=== PATIENT | female | born 1955 | race American Indian/Alaskan Native ===

== ENCOUNTER 2017-11-11 10:27 | Emergency (ER) | payer MEDICARE ==
--- NOTE | 2017-11-11 12:05 | Emergency Department Report ---
- General Chief complaint: Weakness Stated complaint: WEAKNESS Time Seen by Provider: 11/11/17 11:38 Source: patient Mode of arrival: Ambulatory Limitations: No Limitations - History of Present Illness Initial comments: 62-year-old woman presents for evaluation of generalized weakness. Weakness has been present chronically, for at least 6 months, probably longer, but patient moved here 6 months ago from [place], where she had previously been diagnosed with brain tumor, of unknown type, approximately 5 years ago, which she never had follow-up on, primarily of fear of possible consequences. She also has chronic hepatitis C, has not had definitive treatment for this, although she was recommended for it and was ready to start at the time that she moved from [place]. She has not seen a doctor since she has moved to [place], takes no routine medication, and reports few other illnesses, although she does have a distant history of asthma as well as COPD, secondary to smoking , but reports that she only smokes 2 or 3 cigarettes per day at this time. She denies alcohol use, denies active recreational drug use. Past medical history negative for underlying hepatitis C, known brain tumor, COPD, and she is chronically disabled, but not specific Y, reporting that she simply cannot work. Weakness is described as generalized, persistent, with decreased appetite, resulting in eating much less, with subsequent weight loss of about 20-25 pounds over the past several months. She has not had any focal deficit, she's not had any lightheadedness, no loss of consciousness, no systemic symptoms, no fever chills or diaphoresis. She is also concerned about a possible blood clot in her leg, because she has a knot in her left anterior thigh, but no history of trauma, although she reports she puts her elbow frequently on her thigh routinely and chronically. She has no complaints of pain at this time. -: Gradual, month(s) Location: generalized Severity: moderate Associated Symptoms: loss of appetite. denies: chest pain, confusion, dysuria, fever/chills, nausea/vomiting, myalgias - Related Data Allergies Allergy/AdvReac Type Severity Reaction Status Date / Time No Known Allergies Allergy Unverified 11/11/17 10:32 ED Review of Systems ROS: Stated complaint: WEAKNESS Other details as noted in HPI Comment: All other systems reviewed and negative Constitutional: no symptoms reported ENT: denies: throat pain Respiratory: denies: cough, shortness of breath, wheezing Cardiovascular: denies: chest pain, palpitations Endocrine: no symptoms reported Gastrointestinal: denies: abdominal pain, nausea, diarrhea Genitourinary: denies: urgency, dysuria, discharge Musculoskeletal: other (left anterior thigh skin nodule, bump in anterior leg, thinks it's a blood clot). denies: back pain, joint swelling, arthralgia, myalgia Neurological: weakness (generalized, no focal findings). denies: numbness, paresthesias, abnormal gait, vertigo Psychiatric: denies: anxiety, depression Hematological/Lymphatic: denies: easy bleeding ED Past Medical Hx - Past Medical History Hx Hypertension: Yes Hx Psychiatric Treatment: Yes (ANXIETY) Hx Asthma: Yes Additional medical history: HEP C, told liver in good shape - Surgical History Past Surgical History?: No - Social History Smoking Status: Current Every Day Smoker Substance Use Type: Alcohol ED Physical Exam - General Limitations: No Limitations General appearance: alert, in no apparent distress - Head Head exam: Present: atraumatic, normocephalic - Eye Eye exam: Present: PERRL, EOMI - ENT ENT exam: Present: normal exam - Neck Neck exam: Present: normal inspection, full ROM. Absent: tenderness - Respiratory Respiratory exam: Present: normal lung sounds bilaterally. Absent: respiratory distress, wheezes, rales, rhonchi, chest wall tenderness - Cardiovascular Cardiovascular Exam: Present: regular rate, normal heart sounds - GI/Abdominal GI/Abdominal exam: Present: soft - Rectal Rectal exam: Present: deferred - External exam: Present: normal external exam - Extremities Exam Extremities exam: Present: normal inspection, full ROM, other (small 2 cm subcutaneous nodule left mid anterior thigh, firm, round, mobile, nontender). Absent: tenderness, normal capillary refill, calf tenderness - Back Exam Back exam: Present: normal inspection. Absent: CVA tenderness (R), CVA tenderness (L), paraspinal tenderness, vertebral tenderness - Neurological Exam Neurological exam: Present: alert, oriented X3, CN II-XII intact, other (normal motor strength all extremities, no drift upper arms, no tremor, normal finger to nose). Absent: motor sensory deficit - Psychiatric Psychiatric exam: Present: normal affect - Skin Skin exam: Present: warm, dry, intact. Absent: rash ED Course Vital Signs 11/11/17 11/11/17 11/11/17 10:32 11:45 12:00 Temperature 36.7 C Pulse Rate 95 H 76 74 Respiratory 16 13 13 Rate Blood Pressure 180/94 172/87 164/102 O2 Sat by Pulse 100 100 99 Oximetry ED Medical Decision Making - Lab Data Result diagrams: 11/11/17 12:03 11/11/17 12:13 - Radiology Data Radiology results: report reviewed (CT scan shows 4.1 cm calcified mass, suggestive of meningioma and right frontoparietal region.) - Medical Decision Making Patient appears to be well-nourished, does not appear to be emaciated or to have significant acute weight loss, but is concerned about decreased appetite, but physical examination, laboratory evaluation, and CT scan are unremarkable, with the exception of a 4.1 cm meningioma, which appears to be stable. She has a minor subcutaneous nodule in her left thigh, which is probably a lipoma, d- dimer is negative. Patient also has underlying secondary anxiety, this probably most likely concerned about the state of her tumor, but is also concerned about lack of appetite, but explained that there is no definitive treatment for decreased appetite, and to seek healthy nursing foods, on a more frequent basis, generally 6 small meals per day. No medicines are to be prescribed, but she needs a family practice follow-up, she needs a moccasin sewer for her hepatitis C, which appears stable also, and she also needs neurosurgical consult. All of these can be managed on an outpatient basis. Copy of CT scan provided for patient for presentation to neurosurgeon, as we do not have on-retail performance specialist here. Critical Care Time: No Critical care attestation.: If time is entered above; I have spent that time in minutes in the direct care of this critically ill patient, excluding procedure time. ED Disposition Clinical Impression: Weakness generalized, Meningioma Disposition: DC-01 TO HOME OR SELFCARE Is pt being admited?: No Does the pt Need Aspirin: No Condition: Stable Instructions: Meningioma (ED), Weakness (ED) Additional Instructions: We have evaluated for weakness today, laboratory evaluation is stable, there is no anemia, hydration is good, and meningioma is still present, 4.1 cm, but there are no secondary complications from this at this time. You're stable for discharge home, and we are providing U a general medicine follow-up, with Dr. Easton Landaverde, . We recommend follow-up with Dr. Landaverde in the next week or 2 for repeat examination, evaluation of improvement of eating and weight, and to make arrangements for follow-up with a liver specialist for your hepatitis C, as well as a referral for follow-up neurosurgical specialist for your meningioma. No prescriptions are provided at this time, and you may continue your regular activities as before. Referrals: PRIMARY CARE, [Primary Care Provider] - 3-5 Days Time of Disposition: 13:27
[2017-11-11 12:08] VITALS: BP 164/102
[2017-11-11 12:27] LABS: Hematocrit 45.1 % (30.3-42.9); Hemoglobin 15.3 gm/dl (10.1-14.3); Mean Corpuscular HGB Conc 34 % (30-34); Mean Corpuscular Hemoglobin 29 pg (28-32); Mean Corpuscular Volume 86 fl (79-97); Red Blood Count 5.28 M/mm3 (3.65-5.03)
[2017-11-11 12:37] LABS: INR 0.81 (0.87-1.13)
[2017-11-11 12:42] LABS: Alanine Aminotransferase 31 units/L (7-56); Albumin 4.1 g/dL (3.9-5); BUN/Creatinine Ratio 25; Blood Urea Nitrogen 10 mg/dL (7-17); Calcium 9.9 mg/dL (8.4-10.2); Hemolysis Index 60
--- NOTE | 2017-11-11 12:59 | Cat Scan Report ---
CT head without contrast: Weakness. Axial images demonstrates a mass in the high right frontoparietal region. There is a rim of peripheral calcification as well as some slightly more central denser calcifications. The maximum mass dimensions approximately 4.1 cm. It would appear to be extra cerebral with compression of the underlying brain tissue. There is mild peripheral atrophy. There is no displacement of the ventricular system. The visualized bones and paranasal sinuses are unremarkable. Impression: Intracranial mass. High suspicion of meningioma. Recommendation: MR scan.
[2017-11-11 13:05] LABS: Basophils % (Manual) 0 % (0.0-1.8); Eosinophils % (Manual) 0 % (0.0-4.3); Total Cells Counted 100
[2017-11-11 13:06] LABS: Giant Platelets 1+; Platelet Clumps 1+; RBC Morphology Normal
[2017-11-11 13:07] LABS: Platelet Count 151 K/mm3 (140-440)
== END 2017-11-11 13:54 | disposition home or self-care (01) ==
LOC: ED 10:27
DX: D32.9 Benign neoplasm of meninges, unspecified (principal); R22.32 Localized swelling, mass and lump, left upper limb; I10 Essential (primary) hypertension; J44.9 Chronic obstructive pulmonary disease, unspecified; F17.210 Nicotine dependence, cigarettes, uncomplicated
CPT/HCPCS: 36415; 70450; 80053; 83735; 85007; 85025; 85379; 85610; 99283